=== PATIENT | male | born 2005 | race Caucasian/White ===

== ENCOUNTER 2023-05-26 13:05 | Emergency (ER) | payer BC, SELFPAY ==
--- NOTE | ~2023-05-26 | XR_ITS ---
EXAMINATION: XR chest 1V 05/26/2023 15:12 INDICATION: Cough and congestion. PROCEDURE: 2 view chest COMPARISON: No prior studies for comparison. FINDINGS: The lungs are clear. The cardiomediastinal silhouette is within normal limits. There are no pleural effusions. There is no pneumothorax suspected. IMPRESSION: 1: NO ACUTE CARDIOPULMONARY DISEASE. Reviewed, dictated and finalized at location L. ERN DUPLICATOR
[2023-05-26 13:35] VITALS: BP 146/75; PULSE 78; RESP 16; TEMP 36.6; O2SAT 100
--- NOTE | 2023-05-26 13:38 | ED_ITS ---
HPI - URI/Sore Throat General Chief Complaint: Upper Respiratory Infection Stated Complaint: productive cough x 1 week Source: patient and family Mode of arrival: ambulatory Limitations: no limitations History of Present Illness HPI Narrative: Patient is a 18-year-old male who denies any significant past medical history who presents emergency department today for having a week of a cough that is very productive. He states he is coughing up a bunch of yellow sputum that has a very strong odor and his mother thinks he has bronchitis. He denies having any fever. Denies nausea, vomiting, abdominal pain, diarrhea, sore throat, dizziness, headache, chest pain, or shortness of breath. He states he has tried taking Mucinex for the symptoms. He states that he does smoke daily it varies how much. He denies any known exposure to anybody with illness. Review of Systems Review of Systems: CONSTITUTIONAL: Denies fever, chills, or sweats. EYES: Denies visual changes, redness, or discharge. ENT: +congestion. Denies ear pain or sore throat. CARDIOVASCULAR: Denies chest pain, palpitations, or edema. RESPIRATORY: +productive congested cough with strong smelling sputum. Denies dyspnea. GASTROINTESTINAL: Denies abdominal pain, nausea, vomiting, or diarrhea. GENITOURINARY: Denies dysuria or hematuria. SKIN: Denies rash or itching. MUSCULOSKELETAL: +body aches. NEUROLOGIC: Denies headache, numbness, or weakness. PSYCHIATRIC: Denies anxiety or depression. All systems reviewed & are unremarkable except as noted in HPI and below Exam Narrative: GENERAL: Well-appearing, well-nourished, and in no acute distress. HEAD: Normocephalic, atraumatic. EYES: PERRLA and EOMI. ENT: Nares clear, no rhinorrhea or epistaxis. mild nasal congestion and post nasal drip present. Mucous membranes moist. NECK: Supple. CHEST: Clear to auscultation. No respiratory distress. HEART: Regular rate and rhythm. EXTREMITIES: Normal range of motion. No edema. SKIN: Warm, dry, no rash. NEURO: No focal deficits. Alert and oriented x3. PSYCH: Normal mood and affect. Course Vital Signs Vital signs: Vital Signs Temperature 97.9 F 05/26/23 13:35 Pulse Rate 78 05/26/23 13:35 Respiratory Rate 16 05/26/23 13:35 Blood Pressure 146/75 H 05/26/23 13:35 Pulse Oximetry 100 05/26/23 13:35 Oxygen Delivery Room Air 05/26/23 13:35 Temperature 97.9 F 05/26/23 13:35 Pulse Rate 78 05/26/23 13:35 Respiratory Rate 16 05/26/23 13:35 Blood Pressure 146/75 H 05/26/23 13:35 Pulse Oximetry 100 05/26/23 13:35 Oxygen Delivery Room Air 05/26/23 13:35 MDM - URI/Sore Throat MDM Narrative Medical decision making narrative: will obtain viral swab and CXR. symptoms viral, he is non-toxic Lab Data Labs: Lab Results 05/26/23 Range/Units 13:48 Influenza A (RT-PCR) Negative (Negative) Influenza B (RT-PCR) Negative (Negative) RSV (RT-PCR) Negative (Negative) SARS-CoV-2 RNA (RT-PCR) Negative (Negative) Discharge Plan Discharge Clinical Impression: Cough Patient Disposition: Elopement After Seen by Prov Condition: Guarded Prognosis Follow-up/Referrals: PHYSICIAN,AUTOMOTIVE LEASING SALES REPRESENTATIVE [Primary Care Provider] -
[2023-05-26 16:21] LABS: Influenza A QL RT-PCR Negative (Negative); Influenza B QL RT-PCR Negative (Negative); RSV RNA, RT-PCR Negative (Negative); SARS-CoV-2 RNA PCR Negative (Negative)
== END 2023-05-26 15:30 | disposition left against medical advice (07) ==
PROVIDERS: Emergency Provider Nurse Practitioner
DX: R05.9 Cough, unspecified (principal); Z20.822 Contact with and (suspected) exposure to COVID-19
CPT/HCPCS: 71045; 87637; 99283

== ENCOUNTER 2024-05-10 15:53 | Emergency (ER) | payer BC, SELFPAY ==
--- NOTE | 2024-05-10 15:58 | ED_ITS ---
HPI - URI/Sore Throat General Chief Complaint: Upper Respiratory Infection Stated Complaint: cough Time Seen by Provider: 05/10/24 16:30 Source: patient and RN notes reviewed Mode of arrival: ambulatory Limitations: no limitations History of Present Illness HPI Narrative: 19-year-old male presents with concern for cough, chest congestion. He reports 3-4 day history of symptoms. He denies fever, body aches, chills, sweats. Reports history of bronchitis MD elicited complaint: cough Related Data Home Medications ?Medication ?Instructions ?Recorded ?Confirmed ?Last Taken ?Type albuterol sulfate 90 mcg/actuation inhalation 05/10/24 Unknown History aerosol inhaler Allergies Allergy/AdvReac Type Severity Reaction Status Date / Time No Known Allergies Allergy Verified 05/10/24 16:08 Review of Systems Review of Systems: CONSTITUTIONAL: Denies malaise, chills, sweats, or fever. EYES: Denies visual changes, redness, or discharge. ENT: Reports rhinorrhea, congestion. Denies sinus pain, otalgia and sore throat. CARDIOVASCULAR: Denies chest pain, palpitations, or edema. RESPIRATORY: Reports cough and chest congestion. Denies dyspnea. GASTROINTESTINAL: Denies abdominal pain, nausea, vomiting, diarrhea SKIN: Denies rash or itching. MUSCULOSKELETAL: Denies myalgia. NEUROLOGIC: Denies headache. All systems reviewed & are unremarkable except as noted in HPI and below PMFSH Comments At time of signature, agree with nursing past medical, surgical, social and family history. There is no relevant family history pertinent to the presenting complaint Exam Narrative: GENERAL: Well-appearing, well-nourished, and in no acute distress. HEAD: Normocephalic EYES: PERRLA, conjunctivae clear ENT: Nares clear. Mucous membranes moist. TM pearly ortiz with sharp light reflex bilaterally; no tragal tenderness. Oropharynx not erythematous without lesions. Tonsils not enlarged and without exudate, no drooling, no hoarseness, no trismus, uvula midline. NECK: Supple. No lymphadenopathy CHEST: Clear to auscultation, breath sounds equal. No wheezing, rhonchi, rales, or stridor. No respiratory distress, speaks in full sentences. HEART: Regular rate and rhythm. No murmur heard. SKIN: Warm, dry, no rash. NEURO: Alert and oriented x3. PSYCH: Normal mood and affect Course Course Emergency Course: Patient is aware of diagnosis, understands and agrees to treatment plan. Anticipatory guidance given. Patient agrees to follow-up as directed and is aware of reasons to seek care at the emergency department. Portions of this record may have been created with voice recognition software Level of Care: Express Care Visit Vital Signs Vital signs: Vital Signs Pulse Rate 100 05/10/24 16:11 Respiratory Rate 18 05/10/24 16:11 Blood Pressure 113/66 05/10/24 16:11 Pulse Oximetry 100 05/10/24 16:11 Oxygen Delivery Room Air 05/10/24 16:11 Pulse Rate 100 05/10/24 16:11 Respiratory Rate 18 05/10/24 16:11 Blood Pressure 113/66 05/10/24 16:11 Pulse Oximetry 100 05/10/24 16:11 Oxygen Delivery Room Air 05/10/24 16:11 Reviewed. MDM - URI/Sore Throat MDM Narrative Medical decision making narrative: Differential diagnosis considered: Lazaro virus, strep pharyngitis, allergic rhinitis, upper respiratory tract infection, sinusitis, rhinosinusitis, nasopharyngitis. viral pharyngitis, otitis media, otitis externa, pneumonia, bronchitis, viral cough syndrome, viral syndrome, and influenza. Exam findings show no acute concerns or changes; patient is non-toxic appearing and is in no distress. Patient is appropriate for outpatient treatment and follow-up. Lab Data Attestation: I reviewed the patient's lab results. Critical Care Time Critical Care Time Critical Care Time: No Discharge Plan Discharge Clinical Impression: Upper respiratory infection Patient Disposition: Home, Self-Care Condition: Stable Instructions: Upper Respiratory Infection (ED) Additional Instructions: Viral illness may last between 7-21 days; antibiotics do not cure viral illness and are NOT recommended at this time. Recommend antihistamine such as Benadryl at night time and Zyrtec or Brandie during the day Also, recommend symptomatic treatment includes: rest, fluids, and increase humidity of the air at home. Recommend Acetaminophen as directed on the bottle to reduce fever, pain, headache. Avoid smoking/second-hand smoke. Please schedule a follow-up visit with your personal physician for further evaluation and treatment within 3-5days. If your symptoms persist, change or worsen significantly before you can contact your personal physician then please, without delay, go to the emergency department for further evaluation. Patient Language: Bots[place] Prescriptions: New dextromethorphan-guaifenesin [Mucinex DM] 60-1,200 mg tablet extended release 12 hr 1 tablet PO Q12H Qty: 12 0RF methylprednisolone [Medrol (Jorge)] 4 mg tablets,dose pack See Rx Instructions .ROUTE .COMPLEX Qty: 21 0RF Rx Instructions: orally per package directions No Action albuterol sulfate 90 mcg/actuation HFA aerosol inhaler INHALATION Follow-up/Referrals: UNKNOWN,DOCTOR [Non-Staff] - Stand Alone Forms: Work/School Release IP Time of Disposition: 16:41
[2024-05-10 16:11] VITALS: BP 113/66; PULSE 100; RESP 18; O2SAT 100
== END 2024-05-10 16:48 | disposition home or self-care (01) ==
DX: J06.9 Acute upper respiratory infection, unspecified (principal); J45.909 Unspecified asthma, uncomplicated; K21.9 Gastro-esophageal reflux disease without esophagitis
CPT/HCPCS: 99213; G0463

== ENCOUNTER 2024-10-11 21:32 | Emergency (ER) | payer BC, SELFPAY ==
--- OUTSIDE RECORDS SUMMARY | 2024-10-11 21:34 | XMS_ITS | Clinical Summary ---
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 Gender Identity Not on file Sexual Orientation Not on file Last Filed Vital Signs Vital Sign Reading Time Taken Comments Blood Pressure 144/59 06/03/2023 5:11 PM FOOD ORDER EXPEDITER Pulse 88 06/03/2023 5:11 PM FOOD ORDER EXPEDITER Temperature 36.4 C (97.6 F) 06/03/2023 5:11 PM FOOD ORDER EXPEDITER Respiratory Rate 16 06/03/2023 5:11 PM FOOD ORDER EXPEDITER Oxygen Saturation 99% 06/03/2023 5:11 PM FOOD ORDER EXPEDITER Inhaled Oxygen Concentration - - Weight 93 kg (205 lb) 06/03/2023 2:46 PM FOOD ORDER EXPEDITER Height 182.9 cm (6') 06/03/2023 2:46 PM FOOD ORDER EXPEDITER Body Mass Index 27.8 06/03/2023 2:46 PM FOOD ORDER EXPEDITER Plan of Treatment Health Maintenance Due Date Last Done Comments Annual Physical 2006 HPV Vaccines (1 - Male 3-dos e series) 2018 Meningococcal B Vaccine (1 o f 2 - Standard) 2019 Hepatitis C 2021 Hepatitis B Vaccines (1 of 3 - 19+ 3-dose series) 2022 COVID-19 Vaccine ( - 2023-2 5 season) 2024 PHQ-2 (Physician [place]) 06/01/2024 DTaP, Tdap and Td Vaccines ( 2 - Td or Tdap) 01/01/2025 01/01/2015 Meningococcal Vaccine Aged Out 01/01/2015 No rolanda kade eligible based on patient's age to complete this topic Pneumococcal Vaccine: Pediat rics (0 to 5 Years) and At-Risk Patients (6 to 49 Years) Aged Out No longer eligi ble based on patient's age to complete this topic RSV Immunizations Under 20 Months Aged Out No longer eligible based on patient's age to complete this topic Insurance [facility]
[2024-10-11 21:43] VITALS: BP 159/83; PULSE 57; RESP 14; TEMP 36.8; O2SAT 100
--- OUTSIDE RECORDS SUMMARY | 2024-10-11 22:01 | XMS_ITS | Clinical Summary ---
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 Gender Identity Not on file Sexual Orientation Not on file Last Filed Vital Signs Vital Sign Reading Time Taken Comments Blood Pressure 144/59 06/03/2023 5:11 PM ARCHITECTURAL PROJECT CAPTAIN Pulse 88 06/03/2023 5:11 PM ARCHITECTURAL PROJECT CAPTAIN Temperature 36.4 C (97.6 F) 06/03/2023 5:11 PM ARCHITECTURAL PROJECT CAPTAIN Respiratory Rate 16 06/03/2023 5:11 PM ARCHITECTURAL PROJECT CAPTAIN Oxygen Saturation 99% 06/03/2023 5:11 PM ARCHITECTURAL PROJECT CAPTAIN Inhaled Oxygen Concentration - - Weight 93 kg (205 lb) 06/03/2023 2:46 PM ARCHITECTURAL PROJECT CAPTAIN Height 182.9 cm (6') 06/03/2023 2:46 PM ARCHITECTURAL PROJECT CAPTAIN Body Mass Index 27.8 06/03/2023 2:46 PM ARCHITECTURAL PROJECT CAPTAIN Plan of Treatment Health Maintenance Due Date Last Done Comments Annual Physical 2006 HPV Vaccines (1 - Male 3-dos e series) 2018 Meningococcal B Vaccine (1 o f 2 - Standard) 2019 Hepatitis C 2021 Hepatitis B Vaccines (1 of 3 - 19+ 3-dose series) 2022 COVID-19 Vaccine ( - 2023-2 5 season) 2024 PHQ-2 (Physician [place]) 06/01/2024 DTaP, Tdap and Td Vaccines ( [...] patient's age to complete this topic Insurance [facility]
--- NOTE | 2024-10-11 22:33 | ED.DENTAL ---
HPI - Dental/Oral General Chief complaint: Dental/Oral Stated complaint: dental Time Seen by Provider: 10/11/24 21:55 Source: patient Mode of arrival: ambulatory Limitations: no limitations History of Present Illness HPI Narrative: Patient is a 19-year-old male who presents the ED with report of dental pain. Patient reports his front 2 teeth (#8/9) are veneers. He states he woke up this morning with significant pain and tenderness to his L front upper tooth (#9). States the pain radiates throughout his left upper gumline. Reports difficulty eating d/t pain. Took ibuprofen and one of his mother's leftover hydrocodone this afternoon w/o improvement. Denies fevers, difficulty breathing, difficulty swallowing, vomiting. Related Data Home Medications ?Medication ?Instructions ?Recorded ?Confirmed ?Last Taken ?Type albuterol sulfate 90 mcg/actuation inhalation 05/10/24 Unknown History aerosol inhaler Allergies Allergy/AdvReac Type Severity Reaction Status Date / Time No Known Allergies Allergy Verified 10/11/24 21:33 Review of Systems Review of Systems: All systems reviewed & are unremarkable except as noted in HPI. All systems reviewed & are unremarkable except as noted in HPI and below Exam Narrative: GENERAL: Well appearing, well-nourished, non-toxic, in no acute distress. HEAD: Normocephalic, atraumatic. ENT: Mild tenderness to palpation throughout left upper gumline, particularly over tooth 9. Slight erythema over gumline. No focal abscess or fluctuance. No drainage. No stridor or trismus. Maintaining secretions. RESPIRATORY: Airway patent, respirations nonlabored. No distress. CARDIOVASCULAR: Regular rate and rhythm MUSCULOSKELETAL: Moves all extremities. No gross deformities. SKIN: Warm, dry, normal color. NEURO: A&O X3. Speech clear. PSYCHIATRIC: Appropriate mood and affect. Normal interaction. Course Vital Signs Vital signs: Vital Signs Temperature 98.3 F 10/11/24 21:43 Pulse Rate 57 L 10/11/24 21:43 Respiratory Rate 14 10/11/24 21:43 Blood Pressure 159/83 H 10/11/24 21:43 Pulse Oximetry 100 10/11/24 21:43 Oxygen Delivery Room Air 10/11/24 21:43 Temperature 98.3 F 10/11/24 21:43 Pulse Rate 57 L 10/11/24 21:43 Respiratory Rate 14 10/11/24 21:43 Blood Pressure 159/83 H 10/11/24 21:43 Pulse Oximetry 100 10/11/24 21:43 Oxygen Delivery Room Air 10/11/24 21:43 MDM - Dental/Oral MDM Narrative Medical decision making narrative: Patient's pain is consistent with dental caries. There are no focal signs of space-occupying abscess. The patient is controlling secretions well without signs of airway compromise. Patient is felt reasonable for outpatient follow-up with dental evaluation. Will be started on Augmentin. Will prescribe short course of pain medication. Advised to continue Tylenol/ibuprofen. Advised close follow-up with dentist. Given return precautions. Medical Records Attestation: I reviewed the patient's medical records. Discharge Plan Discharge Clinical Impression: Toothache Patient Disposition: Home Condition: Stable Instructions: Antibiotic Form, Toothache (ED) Additional Instructions: Take antibiotics as prescribed for dental infection. Continue Tylenol/ibuprofen as needed for pain. [place] for severe pain. Follow-up with dentist for further evaluation. Return to the ED for new or worsening concerns, difficulty breathing or swallowing, unable to keep down food or drink, or any other symptoms of concern. Patient Language: Mongolian Prescriptions: New hydrocodone-acetaminophen 5-325 mg tablet 1 tablet PO Q6H PRN (Reason: pain) Qty: 5 0RF amoxicillin-pot clavulanate 875-125 mg tablet 1 tablet PO Q12H 7 Days Qty: 14 0RF No Action albuterol sulfate 90 mcg/actuation HFA aerosol inhaler INHALATION dextromethorphan-guaifenesin [Mucinex DM] 60-1,200 mg tablet extended release 12 hr 1 tablet PO Q12H Qty: 12 0RF methylprednisolone [Medrol (Jorge)] 4 mg tablets,dose pack See Rx Instructions .ROUTE .COMPLEX Qty: 21 0RF Rx Instructions: orally per package directions Follow-up/Referrals: PHYSICIAN,FOLLOW UP REP [Primary Care Provider] - Stand Alone Forms: Work/School Release IP Time of Disposition: 22:40
[2024-10-11] MEDS: KETOROLAC (*BKC) 60 MG/2 ML VIAL IM (22:34)
[2024-10-11] MEDS: AMOXICILLIN/CLAVULANATE K 875-125 MG TAB 1 TABLET PO (22:34)
== END 2024-10-11 22:49 | disposition home or self-care (01) ==
PROVIDERS: Emergency Provider Physician Assistant
DX: K08.89 Other specified disorders of teeth and supporting structures (principal)
CPT/HCPCS: 96372; 99283; A9270; J1885